=== PATIENT | female | born 1950 | race Caucasian/White ===

== ENCOUNTER → 2019-02-08 12:36 | Outpatient (CLI) | payer MEDICARE, BC | END | disposition home or self-care (01) | LOC: D.RAD 12:36 | PROVIDERS: ATTEND Orthopaedic Surgery | DX: M25.532 Pain in left wrist (principal) ==

== ENCOUNTER → 2020-04-25 17:40 | Outpatient (CLI) | payer MEDICARE, BC ==
[2020-04-25 17:52] LABS: BASOPHILS 0.4 % (0-2); EOSINOPHILS 3.3 % (0-7); HEMOGLOBIN 13.4 g/dL (12-16); IMMATURE GRANULOCYTES 0.2 % (0-5); LYMPHOCYTES 27.9 % (15-50); MCH 29.8 pg (26.0-34.0); MCHC 31.9 g/dL (31.0-37.0); MCV 93.3 fL (80.0-100.0); MEAN PLATELET VOLUME 10.8 fL (7.4-10.4); MONOCYTES 7.7 % (2-11); NEUTROPHILS 60.5 % (40-80); PLATELET COUNT 227 10x3/uL (130-400); RDW 14.4 % (11.5-14.5); WBC 4.8 10x3/uL (4.8-10.8)
[2020-04-25 18:25] LABS: C-REACTIVE PROTEIN < 0.2 mg/dL (0.0-0.9); URIC ACID 6.4 mg/dL (2.6-7.2)
[2020-04-25 19:03] LABS: ERYTHROCYTE SEDIMENTATION RATE 4 mm/hr (0-30)
[2020-04-27 12:10] LABS: ANA REFLEX - DIRECT Negative (Negative)
== END | disposition home or self-care (01) ==
LOC: D.LABREF 17:40
PROVIDERS: ATTEND Orthopaedic Surgery
DX: M13.0 Polyarthritis, unspecified (principal)

== ENCOUNTER → 2020-05-08 13:58 | Outpatient (CLI) | payer MEDICARE, BC | END | disposition home or self-care (01) | LOC: D.CT 13:58 | PROVIDERS: ATTEND Clinical Nurse Specialist Family Health | DX: R22.41 Localized swelling, mass and lump, right lower limb (principal) ==

== ENCOUNTER 2020-05-18 09:25 | Day surgery (SDC) | payer MEDICARE, BC ==
[2020-05-17 09:29] LABS: ANION GAP 6.9 mmol/L (8-16); CALCIUM 8.5 mg/dL (8.5-10.1); CARBON DIOXIDE 33.6 mmol/L (21.0-32.0); CREATININE - SERUM 1.4 mg/dL (0.6-1.3); POTASSIUM - SERUM 4.5 mmol/L (3.5-5.1)
[2020-05-17 09:36] LABS: HEMATOCRIT 42.3 % (36.0-48.0); HEMOGLOBIN 13.6 g/dL (12-16); MCHC 32.2 g/dL (31.0-37.0); MCV 93.2 fL (80.0-100.0); MEAN PLATELET VOLUME 9.6 fL (7.4-10.4); RBC 4.54 10x6/uL (4.00-5.40); RDW 14.2 % (11.5-14.5); WBC 5.2 10x3/uL (4.8-10.8)
[~2020-05-18] VITALS: Ht 154.9 cm; Wt 61.2 kg
[~2020-05-18 09:25] MED LIST: CYMBALTA60 MG PO; HYDROCODON-ACE1 EA10 PO; PROZAC20 MG PO; TRAZODONE HCL150 MG PO
[2020-05-18] MEDS ORDERED: FUROSEMIDE20 MG PO (10:20)
[2020-05-18] MEDS ORDERED: BUSPAR 15 MG TA15 MG PO (10:22)
[2020-05-18] MEDS ORDERED: REMERON15 MG PO (10:22)
[2020-05-18] MEDS ORDERED: GABAPENTIN300 MG PO (10:23)
[2020-05-18 10:47] VITALS: Ht 154.9 cm; Wt 61.2 kg
--- NOTE | 2020-05-19 07:24 | OP ---
PATIENT NAME: ERWIN MATA MEDICAL RECORD: [id number] :48 [facility]ATION:[facility] ADMISSION DATE: SURGEON: KIRIT NAVAS DO DATE OF OPERATION: 05/18/2020 PROCEDURE PERFORMED: Excision of lipoma, right ankle. PREOPERATIVE DIAGNOSIS: Lipoma, right ankle. POSTOPERATIVE DIAGNOSIS: Lipoma, right ankle. INDICATIONS: Ms. Gunn is a 69-year-old female who has had this lipoma, it was getting larger on her right ankle, just distal to the ankle joint and really on the right dorsal lateral foot proximally. I told her I will make an incision over it and remove it. She is aware of the risks including infection, bleeding, recurrence, damage to nerves, vessels in the area, continued pain, and wound problems and she signed consent. SURGEON: Kirit Navas DO DESCRIPTION OF PROCEDURE: The patient was taken to the operative suite, laid in supine position, given general anesthetic, the LMA was placed. She was given a gram of Ancef. The right lower extremity was then prepped and draped in sterile fashion. Timeout was performed, everyone was in agreement of the correct side, site, patient, and procedure. I began by carefully dissecting down through the skin over the lesion after the tourniquet was inflated and right lower extremity was exsanguinated. The lipoma was then excised and checked for soft tissue area to make sure that all was indeed was and was sent off to the lab. The tourniquet was then let down and the site was injected with 0.25% Marcaine without epinephrine and the site was closed by Ricki Weller, certified ethical hacker with 2-0 Prolene in a horizontal mattress fashion. Tourniquet was up to 350 mmHg for 6 minutes. She was then dressed with Adaptic, 4 x 4s, Kerlix, and Igor wrap, awakened and taken to recovery in stable condition. BLOOD LOSS: Minimal. COMPLICATION: None. TRANSINT:[id number] Voice Confirmation ID: [id number] DOCUMENT ID: [id number] KIRIT NAVAS DO at 0724 CC: [id number] DICTATION DATE: 05/18/20 1549 [employer]ATHODE BUILDER: 05/19/20 0204 [facility] 05/18/20 [facility] [address] [place] [id number]
== END 2020-05-18 16:00 | disposition home or self-care (01) ==
LOC: D.OPS 09:25
PROVIDERS: Anesthesiology; ATTEND Orthopaedic Surgery
DX: D17.23 Benign lipomatous neoplasm of skin and subcutaneous tissue of right leg (principal)

== ENCOUNTER → 2020-06-06 13:13 | Outpatient (CLI) | payer MEDICARE, BC ==
[2020-05-18 10:47] VITALS: BMI 25.5
[~2020-06-06 13:13] MED LIST changes: +BUSPAR 15 MG TA15 MG PO; +FUROSEMIDE20 MG PO; +GABAPENTIN300 MG PO; +REMERON15 MG PO
== END | disposition home or self-care (01) ==
LOC: D.CT 13:13
PROVIDERS: ATTEND Clinical Nurse Specialist Family Health
DX: D17.24 Benign lipomatous neoplasm of skin and subcutaneous tissue of left leg (principal)